=== PATIENT | male | born 1970 | race Two or more races ===

== ENCOUNTER 2024-09-13 13:10 | Emergency (ER) | payer BC ==
[~2024-09-13] VITALS: Ht 177.8 cm; Wt 102.1 kg
[2024-09-13] MEDS ORDERED: TENORMIN100 M1 (14:17)
[2024-09-13] MEDS ORDERED: LIPITOR40 M1 PO (14:18)
[2024-09-13] MEDS ORDERED: TETANUS & DIPHTHERIA TOX,ADULT 0.5 ML VIAL IM STA (14:57)
[2024-09-13] MEDS ORDERED: CEFTRIAXONE SODIUM 1,000 MG VIAL IM STA (15:06)
== END 2024-09-13 16:11 | disposition home or self-care (01) ==
LOC: ER 13:12
DX: S61.421A Laceration with foreign body of right hand, initial encounter (principal); W01.0XXA Fall on same level from slipping, tripping and stumbling without subsequent striking against object, initial encounter; Y93.89 Activity, other specified; Y92.828 Other wilderness area as the place of occurrence of the external cause; I10 Essential (primary) hypertension